=== PATIENT | female | born 1955 | race American Indian/Alaskan Native ===

== ENCOUNTER 2021-01-01 07:53 | Day surgery (SDC) | payer MEDICARE ==
--- NOTE | 2020-12-29 14:18 | Anesthesia Consultation ---
Anesthesia Consult and Med Hx Date of service: 01/01/21 - Airway Anesthetic Teeth Evaluation: Good ROM Head & Neck: Adequate Mental/Hyoid Distance: Adequate Mallampati Class: Class II Intubation Access Assessment: Probably Good - Pre-Operative Health Status ASA Pre-Surgery Classification: ASA3 Proposed Anesthetic Plan: General - Pulmonary Hx Smoking: No Hx Respiratory Symptoms: No Hx Sleep Apnea: No (ELLEN PRE SCREEN LOW RISK) - Cardiovascular System Hx Hypertension: Yes Hx Heart Attack/AMI: No Hx Percutaneous Transluminal Coronary Angioplasty (PTCA): No Hx Cardia Arrhythmia: No (hx arrhythmia? s/p ablation 2009, no issues since; recent EKG NSR on chart) Hx Peripheral Vascular Disease: Yes (LLE) - Central Nervous System CVA: No Hx Back Pain: Yes (w/ b/l LE neuropathy, worse on left) Hx Psychiatric Problems: Yes (anxiety/depression) - Endocrine Hx Renal Disease: No (BUN/Fruit Or Nut Picker 8/0.73 K 3.5) Hx Liver Disease: No Hx Insulin Dependent Diabetes: No (A1c 5.7) Hx Non-Insulin Dependent Diabetes: No Hx Thyroid Disease: No - Hematic Hx Anemia: No (H/H 12.3/38.8 Plt 174) - Other Systems Hx Obesity: No - Additional Comments Anesthesia Medical History Comments: No hx anesthetic complications. Hx chronic pain on suboxone 8mg/2mg TID. Patient's pain physician is aware of upcoming surgery. Suboxone to be continued periopertatively. Preop PCP evaluation on chart.
[~2021-01-01 07:53] MED LIST: ACETAMINOPHEN 500 MG TAB PO SCH; MIDAZOLAM 2 MG/2 ML INJ IV NR; SODIUM CHLORIDE 0.9% 1000 ML 1,000 ML IV SCH
[2021-01-01] MEDS ORDERED: ceFAZolin/STERILE WATER 2 GM/20 ML SYRINGE IV NR (08:00)
[2021-01-01] MEDS ORDERED: HYDROmorphone 1 MG/1 ML INJ IV PRN (10:08)
--- NOTE | 2021-01-01 10:08 | Anesthesia Day of Surgery ---
Anesthesia Day of Surgery - Day of Surgery Patient Examined: Yes Patient H&P Reviewed: Yes Patient is NPO: Yes
[2021-01-01] MEDS ORDERED: oxyCODONE /ACETAMINOPHEN 5-325MG TAB PO PRN (10:30)
[2021-01-01] MEDS ORDERED: ONDANSETRON 4 MG/2 ML INJ IV PRN (10:30)
[2021-01-01] MEDS ORDERED: fentaNYL 100 MCG/2 ML INJ ONE (10:59)
[2021-01-01] MEDS ORDERED: MIDAZOLAM 2 MG/2 ML INJ ONE (10:59)
[2021-01-01] MEDS ORDERED: propofoL 200 MG/20 ML VIAL IV ONE (11:00)
[2021-01-01] MEDS ORDERED: KETAMINE/STERILE WATER 50 MG/ML SYRINGE ONE (11:00)
[2021-01-01] MEDS ORDERED: BUPIVACAINE/PF (0.25%) 2.5 MG/ML 30 ML VIAL INFILTRATI ONE (11:21)
[2021-01-01] MEDS ORDERED: BACITRACIN ZINC OINT 28.4 GM TP ONE (11:21)
[2021-01-01] MEDS ORDERED: LIDOCAINE (1%) 10 MG/1 ML VIAL 20 ML MDV ONE (11:21)
[2021-01-01] MEDS ORDERED: VANCOMYCIN 1000 MG INJ ONE (11:37)
[2021-01-01] MEDS ORDERED: ePHEDrine SULFATE 50 MG/1 ML INJ ONE (11:48)
--- NOTE | 2021-01-01 13:44 | Post Operative Note ---
Pre-op diagnosis: T9 Laminectomy for placement of spinal cord stimulator Post-op diagnosis: same Anesthesia: GETA Surgeon: PANFILO AGUAYO II Estimated blood loss: 50-100ml Pathology: none Condition: stable Disposition: PACU
--- NOTE | 2021-01-01 14:39 | XRay Report ---
INTRAOPERATIVE FLUOROSCOPY: SPINE INDICATION / CLINICAL INFORMATION: DORAL COLUMN STIMULATOR IMPLANT. TECHNIQUE: Intraoperative spot images were obtained during the procedure. FINDINGS: Spinal cord stimulating device is noted overlying the midline. There is interbody cage noted in the l ower aspect of the image. Fluoroscopy Time: 0.3 minutes. Fluoroscopy Images: 1. Signer Name: Mehdi Mcnamara DO Signed: 01/01/2021 2:35 PM Workstation Name: [id number]
[2021-01-01] MEDS ORDERED: BUPIVACAINE/PF (0.5%) 5 MG/1 ML 30 ML VIAL INFILTRATI ONE (14:57)
[2021-01-01] MEDS ORDERED: VANCOMYCIN 1,000 MG/20 ML IV ONE (14:58)
[2021-01-01] MEDS ORDERED: SODIUM CHLORIDE 0.9% IRR 1,500 ML BOTTLE IR ONE (14:59)
--- NOTE | 2021-01-01 18:04 | Post Anesthesia Evaluation ---
- Post Anesthesia Evaluation Patient Participated: Yes Airway Patent: Yes Stable Respiratory Function: Yes Nausea/Vomiting: No Temp > 96.8F: Yes Pain Manageable: Yes Adequeate Hydration: Yes Anesthesia Complications: No Other Comments: Patient instructed on use on incentive spirometry and demonstrated good understanding and effort prior to d/c. Awake, alert, neurologically intact w/ SpO2 >90% on room air.
[2021-01-01 22:53] VITALS: BP 121/68
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
== END 2021-01-01 17:25 | disposition home or self-care (01) ==
LOC: OR 07:53
PROVIDERS: ATTEND Psychiatry & Neurology Neurology
DX: M54.41 Lumbago with sciatica, right side (principal); M54.16 Radiculopathy, lumbar region; G89.29 Other chronic pain; I73.9 Peripheral vascular disease, unspecified; I10 Essential (primary) hypertension; M19.90 Unspecified osteoarthritis, unspecified site; F41.9 Anxiety disorder, unspecified; F32.9 Major depressive disorder, single episode, unspecified; Z79.899 Other long term (current) drug therapy; Z98.890 Other specified postprocedural states; Z20.822 Contact with and (suspected) exposure to COVID-19
CPT/HCPCS: 63655; 72020; 86850; 86900; 86901; C1767; C1778; J0690; J2250; J2704; J3010; J3370; J3490; J7030; U0003